=== PATIENT | female | born 1940 | race Caucasian/White ===

== ENCOUNTER 2019-10-26 09:43 | Outpatient (CLI) | payer MEDICARE ==
--- NOTE | 2019-10-26 12:26 | XRAY Report ---
PROCEDURE: SI Joints INDICATIONS: ACUTE RT SIDED LOW BACK PX W/O SCIATIC TECHNIQUE: 3 views of the sacroiliac joints were acquired. COMPARISON: None FINDINGS: Bones: No bony erosions or ankylosis. Mild osteoarthritic degenerative changes noted in the inferior margins of the sacroiliac joints bilaterally. No suspicious bony lesions. No fractures. Bilateral hip prostheses noted. Soft tissues: Overlying bowel gas pattern is normal. No suspicious soft tissue densities. IMPRESSION: Mild bilateral sacroiliac joint osteoarthritis. Reviewed by: Digna Mirza MD, PhD on 10/26/2019 12:25 PM PDT Approved by: Digna Mirza MD, PhD on 10/26/2019 12:25 PM PDT Station ID: [id number]
== END 2019-10-26 09:44 | disposition home or self-care (01) ==
LOC: DI 09:43
PROVIDERS: ATTEND Internal Medicine
DX: M47.818 Spondylosis without myelopathy or radiculopathy, sacral and sacrococcygeal region (principal)
CPT/HCPCS: 72202

== ENCOUNTER 2019-12-09 14:50 | Outpatient (CLI) | payer MEDICARE ==
--- NOTE | 2019-12-10 06:36 | Mammography Report ---
BILATERAL DIGITAL SCREENING MAMMOGRAM 3D/2D: 12/09/2019 CLINICAL: Routine screening. Comparison is made to exams dated: 02/10/2009 mammogram, 02/20/2008 mammogram, and 12/10/2006 mammogr am - [facility]. The tissue of both breasts is predominantly fatty. There is a 0.5 cm focal asymmetry in the left breast at 12 o'clock in the retroareolar region 0.5 cm from the nipple. There also is a 0.4 cm focal asymmetry in the left breast at 7 o'clock middle depth 5.6 cm from the n ipple. No other significant masses, calcifications, or other findings are seen in either breast. IMPRESSION: INCOMPLETE: NEEDS ADDITIONAL IMAGING EVALUATION The 0.5 cm focal asymmetry in the left breast at 12 o'clock in the retroareolar region is indetermina te. A diagnostic mammogram and ultrasound is recommended. The 0.4 cm focal asymmetry in the left breast at 7 o'clock middle depth is indeterminate. A diagnost ic mammogram and ultrasound is recommended. This exam was interpreted at Station ID: [id number]. NOTE: For mammograms, a report in lay terms will be sent to the patient. Approximately 15% of breast malignancies will not be visualized mammographically. In the management of a palpable breast mass, a negative mammogram must not discourage biopsy of a clinically suspicious lesion. Electronically Signed By: Jim Inman M.D., jr/shar:12/09/2019 16:07:04 ACR BI-RADS Category 0: Incomplete 3340F PARENCHYMAL PATTERN: (F) - The breast(s) demonstrate(s) diffuse fatty replacement. BI-RADS CATEGORY: (0) - 0 Mammo and US [id number] Immediate follow-up LATERALITY: (B)
== END 2019-12-09 14:51 | disposition home or self-care (01) ==
LOC: DI 14:50
PROVIDERS: ATTEND Internal Medicine
DX: Z12.31 Encounter for screening mammogram for malignant neoplasm of breast (principal); R92.8 Other abnormal and inconclusive findings on diagnostic imaging of breast
CPT/HCPCS: 77063; 77067

== ENCOUNTER 2019-12-09 14:51 | Outpatient (CLI) | payer MEDICARE ==
--- NOTE | 2019-12-15 16:59 | DEXA Report ---
PROCEDURE: Dexa Spine and/or Hip INDICATIONS: POSTMENOPAUSAL TECHNIQUE: Dual energy x-ray absorptiometry (DXA) was performed on a Retarget[employer] System. Regions measur ed are the AP Spine, femoral neck, and if needed forearm. COMPARISON: None. FINDINGS: Lumbar Spine: Bone Mineral Density 0.924 g/cm/cm,T score -2.1, osteopenia. Left forearm: Bone Mineral Density 0.484 g/cm/cm, T score -3.2, osteoporosis. (T score greater or equal to -1.0: NORMAL) (T score from -1.1 to -2.4: OSTEOPENIA) (T score less than or equal to -2.5 to: OSTEOPOROSIS) Impression: Left forearm osteoporosis. Patients with diagnosis of osteoporosis or osteopenia should have regular bone mineral density assess ment. For those eligible for Medicare, routine testing is allowed once every 2 years. Testing frequ ency can be increased for patients who have rapidly progressing disease or for those who are receivin g medical therapy to restore bone mass. Reviewed by: Lore Tiwari MD on 12/15/2019 4:57 PM PDT Approved by: Lore Tiwari MD on 12/15/2019 4:57 PM PDT Station ID: [id number]
== END 2019-12-09 14:52 | disposition home or self-care (01) ==
LOC: DI 14:51
PROVIDERS: ATTEND Internal Medicine
DX: M81.0 Age-related osteoporosis without current pathological fracture (principal); Z78.0 Asymptomatic menopausal state
CPT/HCPCS: 77080; 77081

== ENCOUNTER 2020-01-05 12:12 | Outpatient (CLI) | payer MEDICARE ==
--- NOTE | 2020-01-06 09:55 | Ultrasound Report ---
LIMITED ULTRASOUND OF LEFT BREAST: 01/05/2020 CLINICAL: Patient returns today to evaluate asymmetry in left breast. Comparison is made to exams dated: 01/05/2020 mammogram and 12/09/2019 mammogram - [facility]. Ultrasound of the left breast 6 o'clock, and retroareolar regions was performed. There is a benign dilated duct in the left breast central to the nipple in the retroareolar region. This correlates with mammography findings. No significant abnormality is seen in the left breast at the 5-7 o'clock position middle depth. The m ammographic abnormality in this location most likely represents normal fibroglandular tissue. IMPRESSION: BENIGN There is no sonographic evidence of malignancy. 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 A 1 year screening mammogram is recommended. This exam was interpreted at Station ID: [id number]. Electronically Signed By: Khai suarez/shar:01/05/2020 13:52:28 Ultrasound BI-RADS: 2 Benign BI-RADS CATEGORY: (2) - 2 RECOMMENDATION: (ANNUAL) - Recommend routine annual screening mammography. [id number] 1 year screening LATERALITY: (B)
--- NOTE | 2020-01-06 09:55 | Mammography Report ---
UNILATERAL LEFT DIGITAL DIAGNOSTIC MAMMOGRAM 3D/2D: 01/05/2020 CLINICAL: Patient returns today to evaluate a focal asymmetry in the left breast. Comparison is made to exam dated: 12/09/2019 mammogram - [facility]. The tissue of left breast is predominantly fatty. The previously seen focal asymmetry in the left breast at 6-7 o'clock middle depth disperses on spot compression views, most likely representing normal fibroglandular breast tissue. This area will be ev aluated with targeted ultrasound. There is a 0.5 cm focal asymmetry in the left breast central to the nipple in the retroareolar region . This is seen in additional views. No other significant masses or calcifications are seen in the breast. IMPRESSION: INCOMPLETE: NEEDS ADDITIONAL IMAGING EVALUATION The 0.5 cm focal asymmetry in the left breast is indeterminate. An ultrasound is recommended. This exam was interpreted at Station ID: [id number]. NOTE: For mammograms, a report in lay terms will be sent to the patient. Approximately 15% of breast malignancies will not be visualized mammographically. In the management of a palpable breast mass, a negative mammogram must not discourage biopsy of a clinically suspicious lesion. SUMMARY: Targeted ultrasound is recommended for further evaluation and will be scheduled immediately following this exam. Electronically Signed By: Khai suarez/shar:01/05/2020 13:49:04 ACR BI-RADS Category 0: Incomplete 3340F PARENCHYMAL PATTERN: (F) - The breast(s) demonstrate(s) diffuse fatty replacement. BI-RADS CATEGORY: (0) - 0 Ultrasound [id number] Immediate follow-up LATERALITY: (L)
== END 2020-01-05 12:13 | disposition home or self-care (01) ==
LOC: DI 12:12
PROVIDERS: ATTEND Internal Medicine
DX: N60.42 Mammary duct ectasia of left breast (principal)
CPT/HCPCS: 76642